=== PATIENT | female | born 1975 | race American Indian/Alaskan Native ===

== ENCOUNTER 2020-08-12 18:37 | Emergency (ER) | payer MEDICAID ==
[2020-08-12 19:34] VITALS: BP 148/86
[2020-08-12] MEDS ORDERED: SODIUM CHLORIDE 0.9% 1000 ML 1,000 ML IV ONE (19:47)
[2020-08-12] MEDS ORDERED: KETOROLAC 30 MG/1 ML INJ IV ONE (19:47)
[2020-08-12] MEDS ORDERED: ONDANSETRON 4 MG/2 ML INJ IV ONE (19:47)
--- NOTE | 2020-08-12 19:49 | Emergency Department Report ---
ED Abdominal Pain HPI - General Chief Complaint: Abdominal Pain Stated Complaint: ABDOMINAL PAIN Time Seen by Provider: 08/12/20 19:33 Source: patient Mode of arrival: Ambulatory Limitations: No Limitations - History of Present Illness Initial Comments: 44 year female with pmhx of uterine fibroids but no other significant pmhx presents to ED c/o abdominal pain. Patient states she has been having periumbilical abdominal pain intermittently for at least 6 mths. She describes it as cramping pain, that does not radiate. She reports associated intermittent nausea and interittent diarrhea. She states she went to [facility] twice last yr for the pain and she was dx with BV but no explanation for the pain. She states she does not have a PCP and has not seen a GI specialist nor OB since she started with the pain. She states she has not had any imaging of her abdomen in past 6mths. She denies vomiting dysuria, hematuriua, vag d/c or abnl vag bleeding. She denies fever or chills. She states her last MC was beginning of last mth. She denies concern for . She has never had any abdominal surgeries. She states she has been taking motrin with relief of her symptoms. MD Complaint: abdominal pain -: month(s) Location: periumbilical - Related Data Previous Rx's Medication Instructions Recorded Last Taken Type traMADoL [Ultram] 50 mg PO Q6HR PRN #12 tablet 08/12/20 Unknown Rx Allergies Allergy/AdvReac Type Severity Reaction Status Date / Time peanut Allergy Hives Verified 01/21/14 23:45 ED Review of Systems ROS: Stated complaint: ABDOMINAL PAIN Other details as noted in HPI Comment: All other systems reviewed and negative Constitutional: denies: chills, fever ENT: denies: ear pain, throat pain Respiratory: denies: cough, shortness of breath, wheezing Cardiovascular: denies: chest pain, palpitations Gastrointestinal: abdominal pain, nausea, diarrhea Genitourinary: frequency ED Past Medical Hx - Past Medical History Previous Medical History?: No - Surgical History Past Surgical History?: No - Social History Smoking Status: Current Every Day Smoker Substance Use Type: None - Medications Home Medications: Home Medications Medication Instructions Recorded Confirmed Last Taken Type traMADoL [Ultram] 50 mg PO Q6HR PRN #12 tablet 08/12/20 Unknown Rx ED Physical Exam - General Limitations: No Limitations General appearance: alert, in no apparent distress - Head Head exam: Present: atraumatic, normocephalic, normal inspection - Eye Eye exam: Present: normal appearance, PERRL, EOMI Pupils: Present: normal accommodation - Neck Neck exam: Present: full ROM - Respiratory Respiratory exam: Present: normal lung sounds bilaterally. Absent: respiratory distress - Cardiovascular Cardiovascular Exam: Present: regular rate, normal rhythm, normal heart sounds - GI/Abdominal GI/Abdominal exam: Present: soft, tenderness (Mild epigastric, LUQ, RLQ ttp without guarding or rebound ). Absent: distended, guarding, rebound - Back Exam Back exam: Present: full ROM - Neurological Exam Neurological exam: Present: alert, oriented X3, CN II-XII intact, normal gait - Psychiatric Psychiatric exam: Present: normal affect, normal mood - Skin Skin exam: Present: intact ED Course Vital Signs 08/12/20 08/12/20 19:29 22:55 Temperature 98.3 F Pulse Rate 102 H Respiratory 18 16 Rate Blood Pressure 148/86 O2 Sat by Pulse 100 Oximetry ED Medical Decision Making - Lab Data Result diagrams: 08/12/20 20:18 08/12/20 20:18 - Radiology Data [facility] [address] [place] [address] Cat Scan Report Signed Patient: GIUSEPPE BRYANT MR#: [id number] : 1975 Acct:[id number] Age/Sex: 44 / F ADM Date: 08/12/20 Loc: ED Attending Dr: Ordering Physician: AMANDA JEFFERSON Date of Service: 08/12/20 Procedure(s): CT abdomen pelvis w con Accession Number(s): [id number] cc: AMANDA JEFFERSON CT ABDOMEN AND PELVIS WITH CONTRAST INDICATION / CLINICAL INFORMATION: Abdominal Pain. TECHNIQUE: Axial CT images were obtained through the abdomen and pelvis following the administration of intravenous contrast. All CT scans at this location are performed using CT dose reduction for ALARA by means of automated exposure control. COMPARISON: None available. FINDINGS: LOWER CHEST: No significant abnormality. LIVER: No significant abnormality. GALLBLADDER: No significant abnormality. PANCREAS: No significant abnormality. SPLEEN: No significant abnormality. ADRENALS: No significant abnormality. KIDNEYS / URETERS: No significant abnormality. URINARY BLADDER: No significant abnormality. REPRODUCTIVE ORGANS: Multiple partially calcified and noncalcified uterine fibroids are seen. STOMACH / SMALL BOWEL: No significant abnormality. COLON: Scattered colonic diverticulosis without evidence of inflammation. APPENDIX: No significant abnormality. PERITONEUM: No free fluid. No free air. No fluid collection. LYMPH NODES: No significant adenopathy. AORTA / ARTERIES: No significant abnormality. IVC / VEINS: No significant abnormality. SKELETAL SYSTEM: No significant abnormality. ADDITIONAL FINDINGS: None. IMPRESSION: 1. No acute abdominopelvic abnormality. 2. Numerous uterine fibroids are seen. 3. Scattered colonic diverticulosis. Signer Name: Shun Flaherty MD Signed: 08/12/2020 10:10 PM Workstation Name: [id number] Transcribed By: SS Dictated By: SHUN FLAHERTY Electronically Authenticated By: SHUN FLAHERTY Signed Date/Time: 08/12/202209 DD/ 06 TD/TT: - Medical Decision Making 44 year female with pmhx of uterine fibroids but no other significant pmhx presents to ED c/o abdominal pain. Patient states she has been having periumbilical abdominal pain intermittently for at least 6 mths. She describes it as cramping pain, that does not radiate. She reports associated intermittent nausea and interittent diarrhea. She states she went to [facility] twice last yr for the pain and she was dx with BV but no explanation for the pain. She states she does not have a PCP and has not seen a GI specialist nor OB since she started with the pain. She states she has not had any imaging of her abdomen in past 6mths. She denies vomiting dysuria, hematuriua, vag d/c or abnl vag ble eding. She denies fever or chills. She states her last MC was beginning of last mth. She denies concern for . She has never had any abdominal surgeries. 2225: CT abdomen shows numerous uterine fibroids but otherwise nothing acute. Labs reviewed and unremarkable. Patient currently resting comfortably and does not appear to be in any acute distress. She is well-appearing, not toxic and does not appear to be significantly dehydrated. Her vital signs are stable. No further work-up indicated at this time. No admission or emergent consult indicated at this time. Discussed CT and lab results with patient. Recommend to her that she needs to follow-up with [facility] as well as a GI specialist for possible colonoscopy and endoscopy. Patient expressed understanding of instructions and agree with plan. Patient was stable at time of discharge. Critical care attestation.: If time is entered above; I have spent that time in minutes in the direct care of this critically ill patient, excluding procedure time. ED Disposition Clinical Impression: Uterine fibroid Disposition: TO HOME OR SELFCARE Is pt being admited?: No Does the pt Need Aspirin: No Condition: Stable Instructions: Uterine Fibroids, Exzm-[id number], Abdominal Pain (ED) Additional Instructions: It is important that you follow-up with your [facility] for further evaluation of uterine fibroids. Take the medication prescribed as directed. Return to the ER if your symptoms changes or worsens. Prescriptions: traMADoL [Ultram] 50 mg PO Q6HR PRN #12 tablet PRN Reason: Pain Referrals: PRIMARY [facility] [Primary Care Provider] - 3-5 Days [facility] [Provider Group] - 3-5 Days Forms: Work/School Release Form(ED) Time of Disposition: 22:26
[2020-08-12 20:35] LABS: Basophils # (Auto) 0.1 K/mm3 (0.0-0.1); Eosinophils % (Auto) 0.4 % (0.0-4.3); Hematocrit 40.9 % (30.3-42.9); Hemoglobin 14.1 gm/dl (10.1-14.3); Lymphocytes % (Auto) 16.7 % (13.4-35.0); Mean Corpuscular HGB Conc 35 % (30-34); Mean Corpuscular Volume 96 fl (79-97); Monocytes # (Auto) 0.5 K/mm3 (0.0-0.8); Monocytes % (Auto) 4.1 % (0.0-7.3); Platelet Count 335 K/mm3 (140-440); Red Blood Count 4.26 M/mm3 (3.65-5.03); Red Cell Distribution Width 13.4 % (13.2-15.2)
[2020-08-12 20:46] LABS: Bilirubin,Urine NEG (Negative); Blood,Urine SM (Negative); Color,Urine Yellow (Yellow); Protein,Urine <15 mg/dL mg/dL (Negative); Urobilinogen,Urine < 2.0 mg/dL (<2.0)
[2020-08-12 20:54] LABS: Alanine Aminotransferase 8 units/L (7-56); Albumin 4.1 g/dL (3.9-5); BUN/Creatinine Ratio 11; Blood Urea Nitrogen 9 mg/dL (7-17); Calcium 9.1 mg/dL (8.4-10.2); Hemolysis Index 9
[2020-08-12 20:56] LABS: Bilirubin,Direct < 0.2 mg/dL (0-0.2)
--- NOTE | 2020-08-12 22:14 | Cat Scan Report ---
CT ABDOMEN AND PELVIS WITH CONTRAST INDICATION / CLINICAL INFORMATION: Abdominal Pain. TECHNIQUE: Axial CT images were obtained through the abdomen and pelvis following the administration of intraven ous contrast. All CT scans at this location are performed using CT dose reduction for ALARA by means of automated exposure control. COMPARISON: None available. FINDINGS: LOWER CHEST: No significant abnormality. LIVER: No significant abnormality. GALLBLADDER: No significant abnormality. PANCREAS: No significant abnormality. SPLEEN: No significant abnormality. ADRENALS: No significant abnormality. KIDNEYS / URETERS: No significant abnormality. URINARY BLADDER: No significant abnormality. REPRODUCTIVE ORGANS: Multiple partially calcified and noncalcified uterine fibroids are seen. STOMACH / SMALL BOWEL: No significant abnormality. COLON: Scattered colonic diverticulosis without evidence of inflammation. APPENDIX: No significant abnormality. PERITONEUM: No free fluid. No free air. No fluid collection. LYMPH NODES: No significant adenopathy. AORTA / ARTERIES: No significant abnormality. IVC / VEINS: No significant abnormality. SKELETAL SYSTEM: No significant abnormality. ADDITIONAL FINDINGS: None. IMPRESSION: 1. No acute abdominopelvic abnormality. 2. Numerous uterine fibroids are seen. 3. Scattered colonic diverticulosis. Signer Name: Chito Flaherty MD Signed: 08/12/2020 10:10 PM Workstation Name: [id number]
== END 2020-08-12 22:55 | disposition home or self-care (01) ==
LOC: ED 18:37
DX: D25.9 Leiomyoma of uterus, unspecified (principal); F17.200 Nicotine dependence, unspecified, uncomplicated; Z79.899 Other long term (current) drug therapy; Z91.010 Allergy to peanuts
CPT/HCPCS: 36415; 74177; 80048; 80076; 81001; 83690; 84703; 85025; 96361; 96374; 96375; 99284; J1885; J2405; J7030; Q9967

== ENCOUNTER 2021-03-21 19:03 | Emergency (ER) | payer MEDICAID ==
[2021-03-21 23:24] VITALS: BP 156/63
[2021-03-21 23:51] LABS: Basophils # (Auto) 0.1 K/mm3 (0.0-0.1); Basophils % (Auto) 0.9 % (0.0-1.8); Eosinophils # (Auto) 0.1 K/mm3 (0.0-0.4); Eosinophils % (Auto) 1.1 % (0.0-4.3); Hematocrit 36.8 % (30.3-42.9); Hemoglobin 13.1 gm/dl (10.1-14.3); Lymphocytes # (Auto) 3.4 K/mm3 (1.2-5.4); Lymphocytes % (Auto) 27.4 % (13.4-35.0); Mean Corpuscular HGB Conc 36 % (30-34); Mean Corpuscular Volume 96 fl (79-97); Monocytes # (Auto) 0.6 K/mm3 (0.0-0.8); Platelet Count 352 K/mm3 (140-440); Red Blood Count 3.84 M/mm3 (3.65-5.03); Red Cell Distribution Width 13.6 % (13.2-15.2)
[2021-03-22 00:09] LABS: Bilirubin,Urine NEG (Negative); Blood,Urine SM (Negative); Color,Urine Straw (Yellow); Protein,Urine <15 mg/dL mg/dL (Negative); Urobilinogen,Urine < 2.0 mg/dL (<2.0); WBC,Urine < 1.0 /HPF (0.0-6.0)
[2021-03-22 00:26] LABS: Alanine Aminotransferase 9 units/L (7-56); Albumin 4.2 g/dL (3.9-5); BUN/Creatinine Ratio 13; Blood Urea Nitrogen 10 mg/dL (7-17); Hemolysis Index 13
--- NOTE | 2021-03-22 06:56 | Event Note ---
ED Screening Note ED Screening Note: 45-year-old -Bhutanese female stroke smoker presents emerged department complaining of having abdominal pain and pelvic pain which is been progressive worsening over the past few days states she had a diagnosis of bacterial vaginosis with similar symptoms about 6 months ago but did not complete the an tibiotics and has been dealing with this issue off and on with vaginal discharge and and smells and pain since since that time no fever, chills, sweats she feels she is having a bacterial infection and would like to be treated. She also is now reporting having some chest pain to the upper left chest off and on of unknown etiology pain is not associated with any shortness of breath any fevers or chills. No known contact with the coronavirus, no hemoptysis no hematemesis no diarrhea This initial assessment/diagnostic orders/clinical plan/treatment(s) is/are subject to change based on patients health status, clinical progression and re- assessment by fellow clinical providers in the ED. Further treatment and workup at subsequent clinical providers discretion. Patient/guardian urged not to elope from the ED as their condition may be serious if not clinically assessed and managed. Initial orders include:
[2021-03-22] MEDS ORDERED: DICYCLOMINE 20 MG TAB PO ONE (08:44)
[2021-03-22] MEDS ORDERED: SIMETHICONE 80 MG CHEW TAB PO ONE ×2 (08:44→10:00)
[2021-03-22] MEDS ORDERED: KETOROLAC 60 MG/2 ML INJ IM ONE (08:44)
[2021-03-22] MEDS ORDERED: FAMOTIDINE 20 MG TAB PO ONE (08:44)
--- NOTE | 2021-03-22 08:51 | Emergency Department Report ---
ED General Adult HPI - General Chief complaint: Abdominal Pain Stated complaint: ABDOMINAL PAIN Time Seen by Provider: 03/22/21 07:31 Source: patient Mode of arrival: Ambulatory Limitations: No Limitations - History of Present Illness Initial comments: 45-year-old -Sudanese female patient presents with complaints of intermittent abdominal pain for the past year and fishy vaginal odor x1 week. Patient seen in this ED twice for her abdominal pain and states she has not followed up with gastroenterology as recommended. She reports the pain is p eriumbilical and epigastric and describes it as bloating and gassiness with cramping. Patient rates her current pain as a 7/10 in severity and states this episode has been ongoing for the past week. She also reports the pain seems to occur around the time of her menstrual cycle in seems to resolve a few days after every month. Patient does have a history of uterine fibroids, however she has not seen an EMULSION COATER concerning these. She denies any vaginal discharge, dysuria, hematuria, dyspareunia, fever/chills/sweats. She admits to nausea without vomiting and intermittent cycles of diarrhea and constipation. Patient states she did have a bowel movement yesterday without melena or hematochezia. Screening note from provider Claritza mentions chest pain. When discussed in further detail with patient, she states she gets intermittent left-sided chest pain for the past 6 months to 1 year and denies any in the past 24 hours. She also denies any shortness of breath, leg pain/swelling, hormone use, history of DVT/PE, recent long travel, hemoptysis, or history of cancer. No personal his tory or family history of heart disease per patient. - Related Data Previous Rx's Medication Instructions Recorded Last Taken Type traMADoL [Ultram] 50 mg PO Q6HR PRN #12 tablet 08/12/20 Unknown Rx Dicyclomine [Bentyl] 20 mg PO QID PRN #40 tablet 03/22/21 Unknown Rx Famotidine [Pepcid] 20 mg PO BID PRN #20 tablet 03/22/21 Unknown Rx Naproxen [Naprosyn] 500 mg PO BID PRN #20 tablet 03/22/21 Unknown Rx Ondansetron [Zofran Odt] 4 mg PO Q8HR PRN #20 tab.rapdis 03/22/21 Unknown Rx metroNIDAZOLE [Flagyl TAB] 500 mg PO Q12HR 7 Days #14 tab 03/22/21 Unknown Rx Allergies Allergy/AdvReac Type Severity Reaction Status Date / Time peanut Allergy Hives Verified 03/21/21 23:24 ED Review of Systems ROS: Stated complaint: ABDOMINAL PAIN Other details as noted in HPI Constitutional: denies: chills, diaphoresis, fever, malaise Respiratory: denies: cough, shortness of breath Cardiovascular: as per HPI. denies: edema, syncope Gastrointestinal: abdominal pain, nausea. denies: vomiting, melena, hematochezia Genitourinary: denies: dysuria, frequency, hematuria, abnormal menses Neurological: denies: headache ED Past Medical Hx - Past Medical History Previous Medical History?: No - Surgical History Past Surgical History?: No - Social History Smoking Status: Current Every Day Smoker - Medications Home Medications: Home Medications Medication Instructions Recorded Confirmed Last Taken Type traMADoL [Ultram] 50 mg PO Q6HR PRN #12 tablet 08/12/20 Unknown Rx Dicyclomine [Bentyl] 20 mg PO QID PRN #40 tablet 03/22/21 Unknown Rx Famotidine [Pepcid] 20 mg PO BID PRN #20 tablet 03/22/21 Unknown Rx Naproxen [Naprosyn] 500 mg PO BID PRN #20 tablet 03/22/21 Unknown Rx Ondansetron [Zofran Odt] 4 mg PO Q8HR PRN #20 tab.rapdis 03/22/21 Unknown Rx metroNIDAZOLE [Flagyl TAB] 500 mg PO Q12HR 7 Days #14 tab 03/22/21 Unknown Rx ED Physical Exam - General Limitations: No Limitations General appearance: alert, in no apparent distress - Head Head exam: Present: atraumatic, normocephalic - Eye Eye exam: Present: normal appearance. Absent: scleral icterus - Neck Neck exam: Present: normal inspection - Respiratory Respiratory exam: Present: normal lung sounds bilaterally. Absent: respiratory distress - Cardiovascular Cardiovascular Exam: Present: regular rate, normal rhythm. Absent: systolic murmur, diastolic murmur, rubs, gallop - GI/Abdominal GI/Abdominal exam: Present: soft, distended (Mild periumbilical). Absent: tenderness, guarding, rebound, rigid - Extremities Exam Extremities exam: Present: full ROM. Absent: calf tenderness (No swelling or tenderness noted bilaterally) - Neurological Exam Neurological exam: Present: alert, oriented X3 - Psychiatric Psychiatric exam: Present: normal affect, normal mood - Skin Skin exam: Present: warm ED Course Vital Signs 03/21/21 03/22/21 03/22/21 23:20 09:12 09:57 Temperature 97.8 F Pulse Rate 80 88 Respiratory 18 18 16 Rate Blood Pressure 156/63 [Left] O2 Sat by Pulse 100 98 Oximetry ED Medical Decision Making - Lab Data Result diagrams: 03/21/21 23:38 03/21/21 23:38 Lab Results 03/21/21 03/21/21 03/21/21 Range/Units 23:38 23:38 23:38 WBC 12.3 H (4.5-11.0) K/mm3 RBC 3.84 (3.65-5.03) M/mm3 Hgb 13.1 (10.1-14.3) gm/dl Hct 36.8 (30.3-42.9) % MCV 96 (79-97) fl MCH 34 H (28-32) pg MCHC 36 H (30-34) % RDW 13.6 (13.2-15.2) % Plt Count 352 (140-440) K/mm3 Lymph % (Auto) 27.4 (13.4-35.0) % [place] % (Auto) 5.0 (0.0-7.3) % Eos % (Auto) 1.1 (0.0-4.3) % Baso % (Auto) 0.9 (0.0-1.8) % Lymph # (Auto) 3.4 (1.2-5.4) K/mm3 [place] # (Auto) 0.6 (0.0-0.8) K/mm3 Eos # (Auto) 0.1 (0.0-0.4) K/mm3 Baso # (Auto) 0.1 (0.0-0.1) K/mm3 Seg Neutrophils % 65.6 (40.0-70.0) % Seg Neutrophils # 8.1 H (1.8-7.7) K/mm3 Sodium 140 (137-145) mmol/L Potassium 3.9 (3.6-5.0) mmol/L Chloride 104.3 (98-107) mmol/L Carbon Dioxide 27 (22-30) mmol/L Anion Gap 13 mmol/L BUN 10 (7-17) mg/dL Creatinine 0.8 (0.6-1.2) mg/dL Estimated GFR > 60 ml/min BUN/Creatinine Ratio 13 % Glucose 114 H (65-100) mg/dL Calcium 9.0 (8.4-10.2) mg/dL Total Bilirubin 0.30 (0.1-1.2) mg/dL AST 15 (5-40) units/L ALT 9 (7-56) units/L Alkaline Phosphatase 80 (35-129) units/L Troponin T (0.00-0.029) ng/mL Total Protein 6.9 (6.3-8.2) g/dL Albumin 4.2 (3.9-5) g/dL Albumin/Globulin Ratio 1.6 % Lipase 36 (13-60) units/L Urine Color (Yellow) Urine Turbidity (Clear) Urine pH (5.0-7.0) Ur Specific [place] (1.003-1.030) Urine Protein (Negative) mg/dL Urine Glucose (UA) (Negative) mg/dL Urine Ketones (Negative) mg/dL Urine Blood (Negative) Urine Nitrite (Negative) Urine Bilirubin (Negative) Urine Urobilinogen (<2.0) mg/dL Ur Leukocyte Esterase (Negative) Urine WBC (Auto) (0.0-6.0) /HPF Urine RBC (Auto) (0.0-6.0) /HPF U Epithel Cells (Auto) (0-13.0) /HPF 03/21/21 03/22/21 Range/Units 23:50 09:36 WBC (4.5-11.0) K/mm3 RBC (3.65-5.03) M/mm3 Hgb (10.1-14.3) gm/dl Hct (30.3-42.9) % MCV (79-97) fl MCH (28-32) pg MCHC (30-34) % RDW (13.2-15.2) % Plt Count (140-440) K/mm3 Lymph % (Auto) (13.4-35.0) % [place] % (Auto) (0.0-7.3) % Eos % (Auto) (0.0-4.3) % Baso % (Auto) (0.0-1.8) % Lymph # (Auto) (1.2-5.4) K/mm3 [place] # (Auto) (0.0-0.8) K/mm3 Eos # (Auto) (0.0-0.4) K/mm3 Baso # (Auto) (0.0-0.1) K/mm3 Seg Neutrophils % (40.0-70.0) % Seg Neutrophils # (1.8-7.7) K/mm3 Sodium (137-145) mmol/L Potassium (3.6-5.0) mmol/L Chloride (98-107) mmol/L Carbon Dioxide (22-30) mmol/L Anion Gap mmol/L BUN (7-17) mg/dL Creatinine (0.6-1.2) mg/dL Estimated GFR ml/min BUN/Creatinine Ratio % Glucose (65-100) mg/dL Calcium (8.4-10.2) mg/dL Total Bilirubin (0.1-1.2) mg/dL AST (5-40) units/L ALT (7-56) units/L Alkaline Phosphatase (35-129) units/L Troponin T < 0.010 (0.00-0.029) ng/mL Total Protein (6.3-8.2) g/dL Albumin (3.9-5) g/dL Albumin/Globulin Ratio % Lipase (13-60) units/L Urine Color Straw (Yellow) Urine Turbidity Clear (Clear) Urine pH 5.0 (5.0-7.0) Ur Specific [place] 1.008 (1.003-1.030) Urine Protein <15 mg/dl (Negative) mg/dL Urine Glucose (UA) Neg (Negative) mg/dL Urine Ketones Neg (Negative) mg/dL Urine Blood Sm (Negative) Urine Nitrite Neg (Negative) Urine Bilirubin Neg (Negative) Urine Urobilinogen < 2.0 (<2.0) mg/dL Ur Leukocyte Esterase Neg (Negative) Urine WBC (Auto) < 1.0 (0.0-6.0) /HPF Urine RBC (Auto) 2.0 (0.0-6.0) /HPF U Epithel Cells (Auto) 1.0 (0-13.0) /HPF - EKG Data EKG shows normal: sinus rhythm Rate: normal - EKG Data Interpretation: no acute changes - Radiology Data Radiology results: report reviewed CHEST 2 VIEWS INDICATION / CLINICAL INFORMATION: Chest pain. COMPARISON: None available. FINDINGS: SUPPORT DEVICES: None. HEART / MEDIASTINUM: No significant abnormality. LUNGS / PLEURA: No significant pulmonary or pleural abnormality. No pneumothorax. ADDITIONAL FINDINGS: No significant additional findings. IMPRESSION: 1. No acute findings. - Medical Decision Making 45-year-old -Sudanese female patient presents with complaints of intermittent abdominal pain for the past year and fishy vaginal odor x1 week. Patient seen in this ED twice for her abdominal pain and states she has not followed up with gastroenterology as recommended. She reports the pain is periumbilical and epigastric and describes it as bloating and gassiness with cramping. Patient rates her current pain as a 7/10 in severity and states this episode has been ongoing for the past week. She also reports the pain seems to occur around the time of her menstrual cycle in seems to resolve a few days after every month. Patient does have a history of uterine fibroids, however she has not seen an EMULSION COATER concerning these. She denies any vaginal discharge, dysuria, hematuria, dyspareunia, fever/chills/sweats. She admits to nausea without vomiting and intermittent cycles of diarrhea and constipation. Patient states she did have a bowel movement yesterday without melena or hematochezia. Screening note from provider Claritza mentions chest pain. When discussed in f urther detail with patient, she states she gets intermittent left-sided chest pain for the past 6 months to 1 year and denies any in the past 24 hours. She also denies any shortness of breath, leg pain/swelling, hormone use, history of DVT/PE, recent long travel, hemoptysis, or history of cancer. No personal history or family history of heart disease per patient. Mildly elevated white count noted on CBC, however no other significant abnormalities noted on CMP, lipase, or UA. Vitals are within normal limits. Heart score = 2. Mild tenderness of the abdomen noted on exam without distention , rebound, or guarding. Patient declines pelvic exam and states she is not concerned for STIs. Given recurrent history of bacterial vaginosis, will treat for this with Flagyl. Patient also declines IV meds and states she would like to discharge home at this time. She reports she will follow up with EM[facility], gastroenterology, and cardiology and primary care. Patient is well-appearing and stable for discharge home. Strict return precautions were discussed in great detail patient verbalized understanding. Critical care attestation.: If time is entered above; I have spent that time in minutes in the direct care of this critically ill patient, excluding procedure time. ED Disposition Clinical Impression: Intermittent chest pain, Abdominal bloating, Abdominal pain, Bacterial vaginosis Disposition: HOME / SELF CARE / HOMELESS Is pt being admited?: No Condition: Stable Instructions: Uterine Fibroids, Abdominal Bloating, Nonspecific Chest Pain, Adult, Bacterial Vaginosis, Npur-ey-Gwsd, Bacterial Vaginosis (ED), Abdominal Pain (ED) Prescriptions: Dicyclomine [Bentyl] 20 mg PO QID PRN #40 tablet PRN Reason: gassiness metroNIDAZOLE [Flagyl TAB] 500 mg PO Q12HR 7 Days #14 tab Naproxen [Naprosyn] 500 mg PO BID PRN #20 tablet PRN Reason: pain Famotidine [Pepcid] 20 mg PO BID PRN #20 tablet PRN Reason: heartburn Ondansetron [Zofran Odt] 4 mg PO Q8HR PRN #20 tab.rapdis PRN Reason: Nausea Referrals: [facility] [Provider Group] - 3-5 Days [facility] [Provider Group] - 3-5 Days DIANNE OCONNELL MD [Staff Physician] - 3-5 Days [facility] [Provider Group] - 3-5 Days Forms: Work/School Release Form(ED) HEART Score - HEART Score History: Slightly suspicious EKG: Normal Age: 45-65 Risk factors: 1-2 risk factors Troponin: Troponin T < 0.010 ng/mL (0.00-0.029) 03/22/21 09:36 Troponin: < normal limit HEART Score: 2 - Critical Actions Critical Actions: 0-3 pts:0.9-1.7%risk of adverse cardiac event.Candidate for discharge
--- NOTE | 2021-03-22 09:15 | XRay Report ---
CHEST 2 VIEWS INDICATION / CLINICAL INFORMATION: Chest pain. COMPARISON: None available. FINDINGS: SUPPORT DEVICES: None. HEART / MEDIASTINUM: No significant abnormality. LUNGS / PLEURA: No significant pulmonary or pleural abnormality. No pneumothorax. ADDITIONAL FINDINGS: No significant additional findings. IMPRESSION: 1. No acute findings. Signer Name: Srikanth Whitmore MD Signed: 03/22/2021 9:10 AM Workstation Name: [id number]
--- NOTE | 2021-03-22 17:49 | Electrocardiograph Report ---
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
== END 2021-03-22 09:57 | disposition home or self-care (01) ==
LOC: ED 19:03
DX: R07.9 Chest pain, unspecified (principal); R10.9 Unspecified abdominal pain; N76.0 Acute vaginitis; R25.2 Cramp and spasm; F17.200 Nicotine dependence, unspecified, uncomplicated
CPT/HCPCS: 36415; 71046; 80053; 81001; 83690; 84484; 85025; 93005; 96372; 99284; J1885